=== PATIENT | female | born 1970 | race Hispanic/Latino ===

== ENCOUNTER 2016-12-22 08:11 | Day surgery (SDC) | payer BC ==
[~2016-12-22] VITALS: Ht 167.6 cm; Wt 88.9 kg
[~2016-12-22 08:11] MED LIST: XANAX0.25 MG PO
[2016-12-22 10:48] VITALS: BP 137/66
== END 2016-12-22 11:05 | disposition home or self-care (01) | DRG 951 ==
LOC: ENDO 08:11 → ORM 11:30
PROVIDERS: ATTEND Surgery
PROC: 0DJD8ZZ Inspection of Lower Intestinal Tract, Via Natural or Artificial Opening Endoscopic (ICD-10-PCS; principal; 2016-12-22)
PROC: 0DB68ZX Excision of Stomach, Via Natural or Artificial Opening Endoscopic, Diagnostic (ICD-10-PCS; 2016-12-22)
DX: Z12.11 Encounter for screening for malignant neoplasm of colon (principal); K29.50 Unspecified chronic gastritis without bleeding; R14.0 Abdominal distension (gaseous); R11.0 Nausea; R10.9 Unspecified abdominal pain; Z80.0 Family history of malignant neoplasm of digestive organs